=== PATIENT | male | born 1965 | race Caucasian/White ===

== ENCOUNTER 2020-05-02 19:30 | Emergency (ER) | payer MEDICAID ==
[~2020-05-02] VITALS: Ht 170.2 cm; Wt 72.6 kg
[~2020-05-02 19:30] MED LIST: NOHOMEMEDICATIONS; NORCO 5-325 TA1 EACH PO; TOBRAMYCIN SULFA5 ML OPHTHALMIC
[2020-05-02 19:36] VITALS: BP 144/102
[2020-05-02] MEDS ORDERED: LASIX 40 MG TAB40 MG PO (19:42)
[2020-05-02] MEDS ORDERED: CARVEDILOL12.5 MG PO (19:42)
[2020-05-02] MEDS ORDERED: SPIRONOLACTONE25 MG PO (19:43)
[2020-05-02] MEDS ORDERED: COZAAR 25 MG TA25 M1 PO (19:43)
[2020-05-02] MEDS ORDERED: LIPITOR10 MG PO (19:43)
== END 2020-05-02 20:09 | disposition home or self-care (01) ==
LOC: M.ERS 19:30
DX: T17.298A Other foreign object in pharynx causing other injury, initial encounter (principal); I50.9 Heart failure, unspecified; X58.XXXA Exposure to other specified factors, initial encounter; Y93.89 Activity, other specified; Y92.89 Other specified places as the place of occurrence of the external cause; Y99.8 Other external cause status